=== PATIENT | female | born 1955 | race Caucasian/White ===

== ENCOUNTER → 2017-04-09 08:08 | Outpatient (CLI) | payer BC, SELFPAY ==
--- NOTE | 2017-04-09 08:10 | MM_ITS ---
MM Dig screening mamm BI w/CAD CAD Screening COMPARISON: August 04, 2016 and 10/22/2015 INDICATION: Screening for breast cancer ORDERING PHYSICIAN: Leander Dorsey MD PATIENT AGE: 61 years TECHNIQUE: Standard CC and MLO images were obtained. R2 CAD reviewed. FINDINGS: There is average fibroglandular tissue. Scattered benign-appearing calcifications and benign-appearing areas of asymmetric density are noted bilaterally. Small cluster of calcifications noted in the medial aspect of the left breast. These are probably benign and may been present previously but only mildly more prominent. No malignant appearing mass or malignant appearing microcalcification. IMPRESSION: No convincing evidence of malignancy. Benign findings left breast BI-RADS Category: 3 Benign Finding Short Term Follow-up RECOMMENDED FOLLOW-UP: 6M - 6 MONTH FOLLOW-UP left breast (A letter has been sent to the patient regarding results of the study.)
== END ==
PROVIDERS: Family Provider Family Medicine; PCP Family Medicine; Visit Provider Obstetrics & Gynecology
DX: Z12.31 Encounter for screening mammogram for malignant neoplasm of breast (principal)
CPT/HCPCS: 77066; 77067

== ENCOUNTER → 2017-10-11 12:43 | Outpatient (CLI) | payer BC, SELFPAY ==
--- NOTE | 2017-10-11 12:45 | MM_ITS ---
MM Dig mamm DX unilat LT CAD INDICATION: Follow-up abnormal mammogram ORDERING PHYSICIAN: Leander Dorsey MD PATIENT AGE: 62 years COMPARISON: 04/09/2017 TECHNIQUE: Left mammogram performed along with spot compression mag views FINDINGS: There is average fibroglandular tissue. Scattered areas of asymmetry are present in the central and then the medial aspect of the left breast. These areas appear to compress out as fibroglandular tissue. Small cluster of microcalcifications in the medial aspect of the left breast are once again noted. Number slightly increased compared to the previous exam. Biopsy is therefore recommended IMPRESSION: Slight increase in the number of microcalcifications involving the medial aspect of the left breast. Suggest stereotactic biopsy for further evaluation BI-RADS Category: 4 Suspicious Abnormality-Biopsy Considered RECOMMENDED FOLLOW-UP: BIO - BIOPSY RECOMMENDED (A letter has been sent to the patient regarding results of the study.)
== END ==
PROVIDERS: Family Provider Family Medicine; PCP Family Medicine; Visit Provider Obstetrics & Gynecology
DX: R92.8 Other abnormal and inconclusive findings on diagnostic imaging of breast (principal)
CPT/HCPCS: 77065

== ENCOUNTER → 2017-12-01 08:42 | Outpatient (CLI) | payer BC, SELFPAY ==
--- NOTE | 2017-12-01 08:45 | MM_ITS ---
MM stereotactic loc LT, MM Dig mamm DX unilat LT CAD ORDERING PHYSICIAN: Leander Dorsey MD PATIENT AGE: 62 years Comparison: 10/11/2017 Limited focused H&P: HISTORY: Breast calcifications PROCEDURE: The patient was placed on the stereotactic table and the calcifications within the medial aspect of the left breast was localized in the most appropriate projection. The breast was prepped in the routine manner, with sterile prep and the overlying skin anesthetized. A 3 to 4 mm skin incision was performed and the 9 gauge sorus vacuum-assisted core biopsy needle was advanced to the region of the calcification. Pre- and post fire images were obtained. After adequate positioning relative to the calcifications was ensured, multiple biopsies were obtained in the region of the calcifications specifically. The core biopsies obtained were sent for specimen mammography. After the calcifications were indeed identified on the specimen mammogram, the procedure was terminated. The patient tolerated the procedure well without complications. Specimen was sent for pathologic analysis which should be forthcoming within 3 working days. Routine follow-up phone call to patient is to be performed as well. A tiny titanium nonferromagnetic MicroMark was positioned through the mammotome needle into the biopsy site. Pathology: Benign fibroadenoma with associated calcifications. No evidence of atypical ductal hyperplasia or carcinoma IMPRESSION: 1. Successful stereotactic vacuum-assisted core biopsy of the Left breast calcifications showing benign findings. 2. Successful placement of a titanium metal MicroMark. 3. No noted complications. SPECIMEN RADIOGRAPH: The mammographically evident calcifications from the prior study are currently evident within the Prasanna dish and within the specimens obtained during mammotome procedure. This is considered an adequate specimen and the procedure was terminated. IMPRESSION: Successful removal of described breast calcifications. Left BREAST MAMMOGRAM: Compared to the prior study, the previously noted calcification have been removed. A small MicroMark clip was inserted into the region of the calcifications. There is evidence of soft tissue changes in the region of the biopsy was soft tissue gas and edema. IMPRESSION: 1. Adequate placement of the MicroMark clip postbiopsy. 2. Postbiopsy changes within the left breast. Recommend 6 month follow-up per routine protocol
== END ==
PROVIDERS: Family Provider Family Medicine; PCP Family Medicine; Visit Provider Obstetrics & Gynecology
DX: R92.8 Other abnormal and inconclusive findings on diagnostic imaging of breast (principal)
CPT/HCPCS: 19081; 77065

== ENCOUNTER → 2017-12-13 07:39 | Outpatient (CLI) | payer BC, SELFPAY ==
[2017-12-13 09:04] LABS: Basophils % 0.8 % (0.1-2.0); Eosinophils # 0.3 K/mm3 (0.0-0.4); Eosinophils % 4.5 % (0.1-12.0); Hematocrit 43.2 % (37.0-47.0); Hemoglobin 13.7 g/dL (12.2-16.2); Lymphocytes # 2.4 K/mm3 (0.7-4.5); Lymphocytes % 43.1 K/mm3 (10-50); Mean Corpuscular HGB Conc 31.8 g/dL (31.8-35.4); Mean Corpuscular Hemoglobin 27.5 pg (27.0-31.2); Mean Corpuscular Volume 86.6 fl (81-99); Mean Platelet Volume 6.6 fl (7.4-10.4); Monocytes # 0.3 K/mm3 (0.1-1.0); Monocytes % 5.5 % (1.7-9.3); Neutrophils # 2.5 K/mm3 (1.8-7.8); Neutrophils % 46.1 % (37.0-80.0); Platelet Count 291 K/mm3 (142-424); Red Blood Count 4.99 M/mm3 (4.20-5.40); Red Cell Distribution Width 13.9 % (11.5-17.5); White Blood Count 5.5 K/mm3 (4.8-10.8)
[2017-12-13 09:37] LABS: Alanine Aminotransferase 24 U/L (12-78); Albumin Level 3.8 gm/dL (3.4-5.0); Albumin/Globulin Ratio 1.2 (1.1-1.8); Alkaline Phosphatase 114 U/L (46-116); Anion Gap 10.5 mEq/L (5-15); Aspartate Amino Transferase 14 U/L (15-37); Bilirubin,Total 0.5 mg/dL (0.2-1.0); Blood Urea Nitrogen 16 mg/dL (7-18); Calcium 9.2 mg/dL (8.5-10.1); Carbon Dioxide 31 mmol/L (21.0-32.0); Chloride 106 mmol/L (98-107); Chol/HDL Ratio 2.8 (1-3.5); Cholesterol 139 mg/dL (140-200); Creatinine,Serum 0.94 mg/dL (0.55-1.02); Estimated Glomerular Filt Rate 60 ml/min (>60); GFR (African American) 73 ML/MIN (>60); Globulin 3.3 gm/dl (1.3-3.2); Glucose 89 mg/dL (74-106); HDL Cholesterol 49 mg/dL (29-89); LDL Cholesterol 64 mg/dL (0-130); Potassium 4.5 mmoL/L (3.5-5.1); Sodium 143 mmol/L (136-145); Total Protein,Serum 7.1 gm/dL (6.4-8.2); Triglycerides 130 mg/dL (30-200); VLDL Cholesterol 26 mg/dL (0-40)
== END ==
PROVIDERS: PCP Family Medicine; Visit Provider Family Medicine
DX: Z79.899 Other long term (current) drug therapy (principal); Z13.1 Encounter for screening for diabetes mellitus; Z13.220 Encounter for screening for lipoid disorders
CPT/HCPCS: 36415; 80053; 80061; 85025

== ENCOUNTER → 2018-06-03 12:40 | Outpatient (CLI) | payer BC, SELFPAY ==
--- NOTE | 2018-06-03 12:42 | MM_ITS ---
MM Dig mamm DX unilat LT CAD Ordering Physician: Leander Dorsey MD Patient Age: 63 years Female COMPARISON: March 20172016 HISTORY. Six-month follow-up. Postbiopsy.: Left breast. Patient did before other right mammogram TECHNIQUE: FINDINGS: Moderate density heterogeneous breast pattern again seen. Mammography with slight decrease sensitivity of this heterogeneous character breast pattern. No focal suspicious mass nor concerning dominant mass. No suspicious calcifications. Vascular calcifications bilaterally... Interval biopsy left breast with density related to post biopsy changes Left breast There has been interval percutaneous biopsy at the deep medial left breast. The calcifications targeted were removed with no new or significant findings otherwise evident. Normal nodularity in one view seem to dissipate on another does not persist with this I believe a bilateral follow-up in one year would be adequate. Right breast. No new findings of significant concern. Bilateral follow-up in one year recommended IMPRESSION: ......... Left breast Interval percutaneous biopsy with clip placement;, with no new findings of significant concern otherwise.. Right breast: Stable no new areas of concern Moderately dense heterogeneous breast Routine bilateral mammogram in not over one year recommended BI-RADS Category: 2 Benign Finding(s) RECOMMENDED FOLLOW-UP: 1YR 1 YEAR FOLLOW-UP A letter has been sent to the patient regarding results of the study.) .
== END ==
PROVIDERS: PCP Family Medicine; Visit Provider Obstetrics & Gynecology
DX: R92.8 Other abnormal and inconclusive findings on diagnostic imaging of breast (principal)
CPT/HCPCS: 77066

== ENCOUNTER → 2018-12-14 08:37 | Outpatient (CLI) | payer BC, SELFPAY ==
[2018-12-14 09:11] LABS: Basophils # 0.1 K/mm3 (0-0.2); Basophils % 0.9 % (0.1-2.0); Eosinophils # 0.2 K/mm3 (0.0-0.4); Eosinophils % 3.6 % (0.1-12.0); Hematocrit 43.4 % (37.0-47.0); Hemoglobin 13.7 g/dL (12.2-16.2); Lymphocytes % 35.5 % (10-50); Mean Corpuscular HGB Conc 31.6 g/dL (31.8-35.4); Mean Corpuscular Hemoglobin 27.8 pg (27.0-31.2); Mean Corpuscular Volume 88.1 fl (81-99); Monocytes # 0.3 K/mm3 (0.1-1.0); Monocytes % 5.6 % (1.7-9.3); Neutrophils # 3.1 K/mm3 (1.8-7.8); Neutrophils % 54.4 % (37.0-80.0); Platelet Count 291 K/mm3 (142-424); Red Blood Count 4.93 M/mm3 (4.20-5.40); Red Cell Distribution Width 13.9 % (11.5-17.5); White Blood Count 5.7 K/mm3 (4.8-10.8)
[2018-12-14 09:55] LABS: Alanine Aminotransferase 19 U/L (12-78); Albumin Level 3.7 gm/dL (3.4-5.0); Albumin/Globulin Ratio 1.3 (1.1-1.8); Alkaline Phosphatase 98 U/L (46-116); Anion Gap 9.2 mEq/L (5-15); Aspartate Amino Transferase 13 U/L (15-37); Bilirubin,Total 0.4 mg/dL (0.2-1.0); Blood Urea Nitrogen 16 mg/dL (7-18); Calcium 8.5 mg/dL (8.5-10.1); Carbon Dioxide 29 mmol/L (21.0-32.0); Chloride 107 mmol/L (98-107); Chol/HDL Ratio 2.8 (1-3.5); Cholesterol 126 mg/dL (140-200); Estimated Glomerular Filt Rate 63 ml/min (>60); GFR (African American) 76 ML/MIN (>60); Globulin 2.9 gm/dl (1.3-3.2); Glucose 88 mg/dL (74-106); HDL Cholesterol 45 mg/dL (29-89); LDL Cholesterol 54 mg/dL (0-130); Potassium 4.2 mmoL/L (3.5-5.1); Sodium 141 mmol/L (136-145); Total Protein,Serum 6.6 gm/dL (6.4-8.2); Triglycerides 133 mg/dL (30-200); VLDL Cholesterol 27 mg/dL (0-40)
== END ==
PROVIDERS: Visit Provider Family Medicine
DX: Z13.1 Encounter for screening for diabetes mellitus (principal); Z13.220 Encounter for screening for lipoid disorders; Z79.899 Other long term (current) drug therapy
CPT/HCPCS: 36415; 80053; 80061; 85025

== ENCOUNTER → 2020-03-20 09:06 | Outpatient (CLI) | payer MEDICARE, SELFPAY ==
[2020-03-20 10:35] LABS: Coronavirus 19 IgG Antibody Negative (Negative); Coronavirus 19 IgM Antibody Negative (Negative)
== END ==
PROVIDERS: Visit Provider Internal Medicine Gastroenterology
DX: Z01.812 Encounter for preprocedural laboratory examination (principal); Z20.822 Contact with and (suspected) exposure to COVID-19; Z12.11 Encounter for screening for malignant neoplasm of colon
CPT/HCPCS: 36415; 86328

== ENCOUNTER 2020-03-22 08:08 | Day surgery (SDC) | payer MEDICARE, OTHER, SELFPAY ==
[2020-03-18 09:05] VITALS: BMI 30.9
[2020-03-22] VITALS (7 sets, daily range): BP systolic 107–149; BP diastolic 70–86; PULSE 62–99; RESP 18; TEMP 36.2–36.6; O2SAT 94–98
--- NOTE | 2020-03-22 09:28 | P.PN_ITS ---
[facility] Anesthesia Checklist - Patient Identification Patient Identification: Arm Band - Structural Data Admitted From: Home Planned Operative Procedure/s: colonoscopy Consent for Planned Operative Procedure(s) Verified: Yes Verified Documents: Surgical Consent, History and Physical - NPO Status Verified Time NPO: 00:00 - Additional verifications Anesthesia Reactions: No - Airway Assessment C-Spine Mobility Assessed: Yes (mp2) TMJ Mobility Assessed: Yes Dentition: Good Dentition - Neurological Assessment Level of Consciousness: Awake, Alert - Anesthesia Plan Anesthesia Risk discussed: Yes Anesthesia Plan: Verified ASA Class: II Anesthesia Type: MAC [facility] History I have reviewed the patient's past medical history: Yes Medical History: Denies:: Cancer, Diabetes Mellitus Type 1, Diabetes Mellitus Type 2, Internal Pacemaker, MRSA, Seizures *Have you ever received a pneumonia vaccine?: No *Have you received a flu vaccine this season?: No Other Medical History: Reports: Other Anesthesia experience/problems:: nac Other Surgeries: Yes: Other. No: Pacemaker Amputation: No Fractures: No - *Social History Last grade of school completed: High school graduate Smoking Status: Never smoker Alcohol Intake: never Alcohol Intake Frequency:: other Substance Use Type: denies use *Occupational Status:: retired Housing: house Household Members: spouse *Travel in the last 8 weeks: None Family Hx:: Heart Attack
--- NOTE | 2020-03-22 09:45 | P.PCN_ITS ---
[facility] Procedure Note Procedure Note:: Colonoscopy Procedure Report: Colonoscopy with cold snare polypectomy Endoscopist: Roe Estes II, MD Referring physician: Jesus Barnes MD Date of Procedure: March 22, 2020 Equipment: Olympus 180 variable stiffness pediatric colonoscope Sedation: MAC sedation Indication: Mrs. Escobar is a 64-year-old female who is here for diagnostic colonoscopy secondary to a positive Cologuard. Her last colonoscopy was in 2005 (Dr. Scott Orozco). The patient does get some hemorrhoidal bleeding. This is minor. She does state that her paternal aunt had colon cancer. She reports no abdominal pain, weight loss or change in her bowel habits. Her recent lab work showed hemoglobin 13.4 and hematocrit 41.7. She had normal creatinine and normal liver chemistries. Procedure: Prior to the procedure, a history and physical exam was performed, and patient's medications and allergies were reviewed. The risks, benefits and alternatives of the sedation and procedure were discussed with the patient. All questions were answered and informed consent was obtained. The patient was brought to the procedure room. Patient identification and proposed procedure were verified by the physician and the nurse. The patient was placed in a left lateral decubitus position and the scope was passed under direct vision. Throughout the procedure, the patient's blood pressure, pulse, and oxygen saturations were monitored continuously. The colonoscopy was accomplished without difficulty. The patient tolerated the procedure well. Findings: On digital rectal examination there was normal rectal tone. There were no external hemorrhoids. The colonoscope was introduced through the anal canal to the rectum and advanced to the cecum. The ileocecal valve and appendiceal orifice were identified. The scope was advanced a short distance into the ileum which appeared grossly normal. The scope was then withdrawn into the colon. There were 4 colon polyps (cecum x2 (5 and 10 mm) and descending x2 (3 and 4 mm)) which were all removed via cold snare polypectomy. There were scattered diverticuli throughout the descending and sigmoid colon (LEFT colon). The rectum itself was normal. Upon retroflexion within the rectum there were grade 2 internal hemorrhoids. The preparation was excellent throughout with [place] Preparation Score of 9. The cecal time was 14 minutes. Impression: 1. Colonic polyps x4 2. Left-sided diverticulosis 3. Grade 2 internal hemorrhoids Plan: I will follow up the polyp pathology and recommend repeat colonoscopy again in 3-5 years based upon the polyp histology. I would encourage bulk fiber supplementation on a long-term daily maintenance basis.
== END 2020-03-22 10:45 | disposition home or self-care (01) ==
LOC: OUTP 08:11
PROVIDERS: PCP Family Medicine; Visit Provider Internal Medicine Gastroenterology
PROC: 0DJD8ZZ Inspection of Lower Intestinal Tract, Via Natural or Artificial Opening Endoscopic (ICD-10-PCS; CPT 45378; principal; 2020-03-22 09:00)
DX: K63.5 Polyp of colon (principal); K57.30 Diverticulosis of large intestine without perforation or abscess without bleeding; K64.1 Second degree hemorrhoids; Z82.3 Family history of stroke; Z80.3 Family history of malignant neoplasm of breast; Z82.49 Family history of ischemic heart disease and other diseases of the circulatory system; Z83.3 Family history of diabetes mellitus; Z88.1 Allergy status to other antibiotic agents; Z79.899 Other long term (current) drug therapy
CPT/HCPCS: 45385; 88305

== ENCOUNTER → 2020-12-24 07:43 | Outpatient (CLI) | payer MEDICARE, OTHER, SELFPAY ==
--- NOTE | 2020-12-24 07:47 | MM_ITS ---
PROCEDURE: MM DIG SCREENING MAMM BI W/CAD Digital Breast Tomosynthesis Included CLINICAL INDICATION: SCREENING There is a history of breast cancer in the patient's sister diagnosed at age 36 and in the patient's paternal aunt. There has been a previous biopsy left breast for benign disease. COMPARISON: Digital mammograms with CAD 06/03/2018 TECHNIQUE: Standard CC and MLO images and 3D Tomosynthesis was obtained. R2 CAD reviewed. FINDINGS: Moderate diffuse fibroglandular densities are seen throughout both breasts and the findings are bilateral and symmetrical. There is a biopsy clip left breast and there is a coarse benign-appearing macro calcification left breast. There is faint arterial calcification in each breast highlighted by CAD. There is no suspicious lesion and no suspicious microcalcifications. IMPRESSION: Moderate diffuse breast density with no suspicious lesions seen BI-RAD Category: 2 Benign Finding(s) FOLLOW-UP: 1YR 1 Year Follow-up (A letter has been sent to the patient regarding results of the study.) Dictated by: Dr. Ramez Dacosta MD 12/27/2020 11:41 Dr. Ramez Dacosta MD in [place] 12/27/2020 11:41
--- NOTE | 2020-12-24 08:25 | XR_ITS ---
PROCEDURE: XR DEXA AXIAL SKELETON CLINICAL HISTORY: POST MENOPAUSAL COMPARISON: CR,DX BONE3 BONE DENSITOMETRY(HIP:LT SPINE from 04/06/2016 FINDINGS: The right hip BMD is 0.784 with a T-score of -0.6. The left hip BMD is 0.776 with a T-score of -0.7. The lumbar spine BMD is 1.374 with a T-score of 3.0. Previous the lowest density was in the left femoral neck with T-score of -0 point IMPRESSION: This patient is considered normal according to the World Health Organization criteria. Fracture risk is low. Based on these results a follow-up exam is recommended in 2 year. Dictated by: Adams Hatch MD 12/24/2020 15:06 Adams Hatch MD in [place] 12/24/2020 15:06
== END ==
PROVIDERS: PCP Family Medicine; Visit Provider Family Medicine
DX: Z12.31 Encounter for screening mammogram for malignant neoplasm of breast (principal); Z13.820 Encounter for screening for osteoporosis; Z78.0 Asymptomatic menopausal state
CPT/HCPCS: 77063; 77067; 77080

== ENCOUNTER → 2021-12-26 10:02 | Outpatient (CLI) | payer MEDICARE, OTHER, SELFPAY ==
--- NOTE | 2021-12-26 10:06 | MM_ITS ---
PROCEDURE INFORMATION: Exam: MG Bilateral Screening 3D Mammography Exam date and time: 12/26/2021 10:05 AM Age: 66 years old Clinical indication: Screening examination. Her sister and a paternal aunt had breast cancer. History of benign left stereotactic biopsy. TECHNIQUE: Imaging protocol: Bilateral Screening tomosynthesis and 2D mammography including computer-aided detection (CAD) when performed. COMPARISON: 1. MG MM DIG SCREENING MAMM BI W/CAD 12/24/2020 8:02 AM 2. MG DXBI MM Dig mamm BI DX w/CAD 06/03/2018 1:09 PM 3. MG STLT MM stereotactic loc LT 12/01/2017 10:08 AM 4. MG DXLT MM Dig mamm DX unilat LT CAD 10/11/2017 1:08 PM FINDINGS: MAMMOGRAPHY: Breast composition: There are scattered areas of fibroglandular density. Mass: None. Architectural distortion: None. Calcifications: No suspicious calcifications. Asymmetric density: None. Skin thickening: None. Axillary adenopathy: None. Other: Left biopsy clip. IMPRESSION: No mammographic evidence of malignancy. Annual screening is recommended unless otherwise clinically indicated. ASSESSMENT: BI-RADS Category 2: Benign
== END ==
PROVIDERS: PCP Family Medicine; Visit Provider Family Medicine
DX: Z12.31 Encounter for screening mammogram for malignant neoplasm of breast (principal)
CPT/HCPCS: 77063; 77067

== ENCOUNTER → 2022-08-07 10:09 | Outpatient (CLI) | payer MEDICARE, OTHER, SELFPAY ==
--- NOTE | 2022-08-07 10:15 | XR_ITS ---
FINAL REPORT TECHNIQUE: Chest PA & Lateral CLINICAL HISTORY: Nonspecific cough COMPARISON: None FINDINGS: 2 views of the chest were performed. The heart size is normal. The mediastinum is within normal limits. There is no acute cardiopulmonary process. There are no pleural effusions. There is no pneumothorax. The bony thorax appears intact. IMPRESSION: No acute cardiopulmonary process. Reviewed, Interpreted and Dictated by Nino Franco MD Transcribed by Gloria Mauricio Authenticated and [facility]
== END ==
PROVIDERS: PCP Family Medicine; Visit Provider Family Medicine
DX: R05.9 Cough, unspecified (principal)
CPT/HCPCS: 71046

== ENCOUNTER → 2022-08-17 07:18 | Outpatient (CLI) | payer SELFPAY ==
--- NOTE | 2022-08-17 07:30 | CT_ITS ---
FINAL REPORT TECHNIQUE: Thin-section axial images were obtained through the heart and coronary arteries per CT coronary calcium score protocol. The study was performed with techniques to keep radiation doses as low as reasonably achievable (ALARA). Individual dose reduction technique using automated exposure control adjustment of mA and/or kv according to the patient's size were employed. CLINICAL HISTORY: SCREENING, hx of htn, COMPARISON: None FINDINGS: On the axial images, there is calcification within the circumflex coronary artery. This gives a coronary artery calcium score of 17 based on the Agatston scale. The coronary artery calcium score places the patient within the 45th percentile based on age and gender. The heart size is normal. There is no pleural pericardial effusion. Limited evaluation of the lungs reveals no suspicious nodule. IMPRESSION: Coronary artery score of 17 placing patient within the 45th percentile. Reviewed, Interpreted and Dictated by Ministerio Petersen III, MD Transcribed by Gloria Mauricio Authenticated and [facility]
== END ==
PROVIDERS: PCP Family Medicine; Visit Provider Family Medicine
DX: Z13.6 Encounter for screening for cardiovascular disorders (principal)
CPT/HCPCS: 75571

== ENCOUNTER 2023-10-21 07:48 | Day surgery (SDC) | payer MEDICARE, OTHER, SELFPAY ==
[2023-10-19 13:16] VITALS: BMI 29.9
[2023-10-21 08:09] VITALS: BP 139/85; PULSE 82; RESP 16; TEMP 36.1; O2SAT 98
[2023-10-21 08:56] VITALS: O2SAT 98
--- NOTE | 2023-10-21 08:56 | P.PNANES_ITS ---
[facility] Disclaimer: The information contained in this section may have been updated after the patient was seen, as this information can be updated by other users. Medical History Cystitis Hypertension Surgical History (Updated 10/21/23 @ 08:05 by Krystyna Bowers) History of facial surgery Social History Smoking Status: Never smoker alcohol intake: never substance use type: denies use current occupational status: retired Travel in the last 8 weeks: None household members: spouse housing: house caffeine: No [facility] Anesthesia Checklist Patient Identification Patient Identification: Arm Band Structural Data Admitted From: Home Planned Operative Procedure/s: Colonoscopy Consent for Planned Operative Procedure(s) Verified: Yes Verified Documents: Surgical Consent and History and Physical NPO Status Verified Time NPO: 00:00 Additional verifications Anesthesia Reactions: No Airway Assessment Mallampati Score:: Class II C-Spine Mobility Assessed: Yes TMJ Mobility Assessed: Yes Dentition: Good Dentition Neurological Assessment Level of Consciousness: Awake, Alert and Appropriate Anesthesia Plan Anesthesia Risk discussed: Yes Anesthesia Plan: Verified ASA Class: II Anesthesia Type: MAC
--- NOTE | 2023-10-21 09:10 | HMH.SCOPE ---
Procedure: Date: 10/21/23 Patient Date of :: 1955 Procedure Performed:: Screening colonoscopy Indications:: History of polyps Performing Provider:: Alondra Solano MD Referring Provider:: Jesus Barnes MD Sedation:: Propofol Procedure:: After placing the patient in the left lateral decubitus position, the colonoscopy was gently inserted into the rectum and under direct visualization advanced to the cecum which was identified by transillumination in the right lower quadrant, identification of the ileocecal valve, appendiceal orifice, and cecal strap. Color, texture, mucosa, and anatomy of the colon were carefully examined with the scope. Findings:: Anal canal: normal Rectum: normal Sigmoid colon: normal without polyps or inflammatory changes, scattered diverticulosis Descending colon: normal without polyps or inflammatory changes Splenic flexure: normal Transverse colon: normal without polyps or inflammatory changes Hepatic flexure: normal Ascending colon: normal without polyps or inflammatory changes Cecum: normal Terminal ileum: not visualized Impression: Scattered sigmoid diverticulosis otherwise normal colonoscopy Recommendations:: Follow up examination in about FIVE years or so, sooner if clinically indicated in view of history of polyps. Complications:: None Estimated blood obtained (mL): 0 Colonoscopy Component Colonoscopy Component Was a colonoscopy performed during today's procedure?: Yes Recommended follow up colonoscopy of at least 10 years?: No If no, follow up colonoscopy recommended in ___ years?: Five Reason for not recommending >/= 10 yr follow-up interval?: History of polyps
[2023-10-21 09:11] VITALS: BP 123/67; PULSE 69; RESP 14; O2SAT 96
[2023-10-21 09:21] VITALS: BP 108/53; PULSE 71; RESP 16; O2SAT 97
[2023-10-21 09:31] VITALS: BP 113/70; PULSE 64; RESP 16; O2SAT 96
[2023-10-21 09:41] VITALS: BP 117/64; PULSE 68; RESP 16; O2SAT 99
== END 2023-10-21 09:53 | disposition home or self-care (01) ==
PROVIDERS: PCP Family Medicine; Visit Provider Internal Medicine Gastroenterology
PROC: 0DJD8ZZ Inspection of Lower Intestinal Tract, Via Natural or Artificial Opening Endoscopic (ICD-10-PCS; CPT 45378; principal; 2023-10-21 09:00)
DX: Z12.11 Encounter for screening for malignant neoplasm of colon (principal); Z86.010 Personal history of colon polyps; K57.30 Diverticulosis of large intestine without perforation or abscess without bleeding
CPT/HCPCS: G0121; J7120

== ENCOUNTER 2023-10-26 08:58 | Outpatient (POV) | payer MEDICARE, OTHER, SELFPAY | END 2023-10-26 23:59 | disposition home or self-care (01) | LOC: SC 08:59 | PROVIDERS: PCP Family Medicine; Visit Provider Dermatology | DX: Z00.00 Encounter for general adult medical examination without abnormal findings (principal) ==

== ENCOUNTER 2023-12-13 09:14 | Outpatient (CLI) | payer MEDICARE, OTHER, SELFPAY ==
--- NOTE | 2023-12-13 09:17 | XR_ITS ---
FINAL REPORT CLINICAL HISTORY: SCREENING FINDINGS: Using L1-4, the bone mineral density of the spine is 1.419 g/cm2, corresponding to T-score of 3.4. Using the left hip, the bone mineral density of the femoral neck is 0.815 g/cm2, corresponding to a T-score of -0.3. Using the right hip, the bone mineral density of the femoral neck is 0.726 g/cm2, corresponding to a T-score of -1.1. FRAX 10 year fracture risk is 8.6% for a hip fracture and 0.9% for a major osteoporotic fracture. IMPRESSION: Normal bone mineral density in the lumbar spine and left hip. Osteopenic bone mineral density of the right hip. NOTE: T-score: Standard deviation compared with peak bone mass of young adult mean. *Following the recommendations of the International Society of Bone densitometry, classification of hip BMD is based on the lower of two T-scores; total hip or femoral neck. Reviewed, Interpreted and Dictated by Gary Sotomayor MD Transcribed by Chiqui Daniel Authenticated and [facility]
== END 2023-12-13 23:59 | disposition home or self-care (01) ==
LOC: RAD 09:15
PROVIDERS: PCP Family Medicine; Visit Provider Family Medicine
DX: M81.0 Age-related osteoporosis without current pathological fracture (principal)
CPT/HCPCS: 77080

== ENCOUNTER 2023-12-20 14:32 | Outpatient (CLI) | payer MEDICARE, OTHER, SELFPAY ==
--- NOTE | 2023-12-20 14:36 | XR_ITS ---
PROCEDURE INFORMATION: Exam: XR Right Knee Exam date and time: 12/20/2023 2:47 PM Age: 68 years old Clinical indication: Pain; Knee; Right TECHNIQUE: Imaging protocol: Radiologic exam of the right knee. Views: 3 views. COMPARISON: No relevant prior studies available. FINDINGS: Bones/joints: Advanced tricompartmental degenerative changes most pronounced in the medial and patellofemoral compartments with associated severe joint space narrowing and prominent spurring and lateral listhesis of the tibia. Osteocartilaginous loose bodies. No acute abnormality. Soft tissues: Normal. IMPRESSION: Advanced degenerative changes. Loose bodies.
== END 2023-12-20 23:59 | disposition home or self-care (01) ==
LOC: RAD 14:33
PROVIDERS: PCP Family Medicine; Visit Provider Family Medicine
DX: M25.561 Pain in right knee (principal)
CPT/HCPCS: 73562

== ENCOUNTER 2024-03-14 11:48 | Outpatient (CLI) | payer MEDICARE, OTHER, SELFPAY ==
--- NOTE | 2024-03-14 11:52 | XR_ITS ---
FINAL REPORT CLINICAL HISTORY: left knee pain COMPARISON: None FINDINGS: LEFT KNEE 3 views of the left knee were obtained. There is no acute fracture or dislocation. There are moderate hypertrophic changes of the lateral compartment joint space. Osteophyte formation is noted at the lateral joint margin. There are small osteophytes along the undersurface of the patella. A small joint effusion is noted. Soft tissues are unremarkable. IMPRESSION: Moderately advanced changes of osteoarthritis, particularly in the lateral compartment and patellofemoral joint. Reviewed, Interpreted and Dictated by Nino Franco MD Transcribed by Gloria Mauricio Authenticated and [facility]
== END 2024-03-14 23:59 | disposition home or self-care (01) ==
LOC: RAD 11:49
PROVIDERS: PCP Family Medicine; Visit Provider Physician Assistant
DX: M25.562 Pain in left knee (principal)
CPT/HCPCS: 73562

== ENCOUNTER 2024-06-26 07:19 | Outpatient (CLI) | payer MEDICARE, OTHER, SELFPAY ==
--- NOTE | 2024-06-26 07:30 | CT_ITS ---
FINAL REPORT TECHNIQUE: Thin section axial CT images with coronal and sagittal reformats were performed of the right knee. This study was performed with techniques to keep radiation doses as low as reasonably achievable (ALARA). Individualized dose reduction techniques using automated exposure control or adjustment of mA and/or kV according to the patient''s size were employed. CLINICAL HISTORY: .total knee planning FINDINGS: There are no fractures. There are no masses or fluid collections. There are no soft tissue abnormalities. There is advanced medial compartment joint space narrowing. Prominent osteophytes are seen in the medial joint. There is subchondral sclerosis and degenerative cyst formation. Moderate hypertrophic changes are seen at the undersurface of the patella. There appear to be small intra-articular loose bodies in the posterior joint space measuring up to 1 cm in greatest dimension. IMPRESSION: Advanced medial compartment joint space narrowing with subchondral cysts and degenerative cyst formation. Reviewed, Interpreted and Dictated by Nino Franco MD Transcribed by Kerry Alvarado Authenticated and [facility]
== END 2024-06-26 23:59 | disposition home or self-care (01) ==
LOC: RAD 07:20
PROVIDERS: PCP Family Medicine; Visit Provider Physician Assistant
DX: M17.11 Unilateral primary osteoarthritis, right knee (principal); M85.48 Solitary bone cyst, other site
CPT/HCPCS: 73700

== ENCOUNTER 2024-07-13 09:00 | Outpatient (RCR) | payer MEDICARE, OTHER, SELFPAY | END 2024-07-13 23:59 | disposition home or self-care (01) | LOC: PT 09:00 | PROVIDERS: PCP Family Medicine; Visit Provider Physician Assistant | DX: M17.11 Unilateral primary osteoarthritis, right knee (principal) | CPT/HCPCS: 97110; 97163; 97535 ==

== ENCOUNTER 2024-08-10 09:00 | Outpatient (RCR) | payer MEDICARE, OTHER, SELFPAY ==
--- NOTE | 2024-07-21 11:19 | HMH.RHREAS ---
Rehab Reassessment Rehab OP Re-assessment Start: 07/18/24 07:58 Freq: Status: Active Protocol: Document 07/20/24 10:23 JIGAR (Rec: 07/20/24 11:13 JIGAR [id number]) E-signed By Valeria Mayer PT Lower Extremity Functional Index Activities Today, do you or would you have any difficulty at all with: a.Any of your usual Moderate difficulty work, housework or school activities b. Your usual Moderate difficulty hobbies, recreational or sporting activities c. Getting into or Quite a bit of difficulty out of the bath d. Walking between Quite a bit of difficulty rooms e. Putting on your Quite a bit of difficulty shoes or socks f. Squatting Extreme difficulty or unable to perform activity g. Lifting an object Moderate difficulty , like a bag of groceries from the floor h. Performing light Moderate difficulty activities around your home i. Performing heavy A little bit of difficulty activities around your home j. Getting into or Quite a bit of difficulty out of a car k. Walking 2 blocks Extreme difficulty or unable to perform activity l. Walking a mile Extreme difficulty or unable to perform activity m. Going up or down Extreme difficulty or unable to perform activity 10 stairs (about 1 flight of stairs) n. Standing for 1 Quite a bit of difficulty hour o. Sitting for 1 No difficulty hour p. Running on even Extreme difficulty or unable to perform activity ground q. Running on uneven Extreme difficulty or unable to perform activity ground r. Making sharp Extreme difficulty or unable to perform activity turns while running fast s. Hopping Quite a bit of difficulty t. Rolling over in No difficulty bed LEFI Score Lower Extremity 25 Functional Index Score Rehab Re-assessment Subjective Subjective Pt reports her surgery isn't scheduled yet. Pt has an appointment on the with ortho, Dr. Araujo. Pt reports she feels 0% improved 48 hour pain average: 10/25 Objective Objective Notes RLE strength: Hip FLEX = 4/5 Hip ABD = 5/5 Hip ADD = 5/5 Knee FLEX = 4+/5 Knee EXT = 4+/5 R knee AROM: 8-110 degrees R knee PROM: 6-115 degrees Assessment Progress Assessment Progressing as Expected Assessment Notes This is a reassessment for Idania Escobar who presents to PT for rehab for R TKA. Since IE, pt has been seen for 7 visits that have consisted of education and therapeutic exercises focusing on knee ROM and strength . Pt with good attendance to scheduled PT visits and reports adherence to HEP. Since IE, pt with improvements in strength and ROM. Pt still presents with impaired knee extension ROM. Pt would continue to benefit from skilled outpatient physical therapy to address remaining deficits and achieve LTGs for knee surgery. Patient goals met ST) Improve knee AROM to 5-110 degrees to improve functional ROM: Partially Met (flexion met) 2) Improve RLE strength by 1/5 grade globally: Met 3) Improve to score of 27 points to improve LE functioning: Not Met 4) At most 4/10 with PT exercises: Not Met 5) Verbalize IND with HEP: Met LTG: In progress Plan Plan Continue POC Frequency of Therapy 2-3 times Duration of therapy 4 weeks, until surgery Time and Billing Re-Eval Time 10 Re-Eval Billing 0 Units Charge for PT No reassessment? PHYSICIAN CERTIFICATION: I certify the specified therapy services for Idania Escobar are required, authorized, and reviewed every 30 days.
== END 2024-08-10 23:59 | disposition home or self-care (01) ==
LOC: PT 09:00
PROVIDERS: PCP Family Medicine; Visit Provider Physician Assistant
DX: M17.11 Unilateral primary osteoarthritis, right knee (principal)
CPT/HCPCS: 97110

== ENCOUNTER 2024-08-23 12:20 | Outpatient (CLI) | payer MEDICARE, OTHER, SELFPAY ==
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
--- OUTSIDE RECORDS SUMMARY | 2024-08-23 12:23 | XMS_ITS | Clinical Summary ---
Author Organization [facility] Address [address] [place] [address] Care Team Providers Care Sr. Merchandise Planner Name Role Phone Zoltan Dial MD Primary Care Provider [phone] Family History Medical History Relation Name Comments Cardiac disorder Father Relation Name Status Comments Father Social History Tobacco Use Types Packs/Day Years Used Date Smoking Tobacco: Never Comments Unknown Sex and Gender Information Value Date Recorded Sex Assigned at Not on file Legal Sex Female 8:57 PM EDT Gender Identity Not on file Sexual Orientation Not on file Last Filed Vital Signs Vital Sign Reading Time Taken Comments Blood Pressure - - Pulse - - Temperature - - Respiratory Rate - - Oxygen Saturation - - Inhaled Oxygen Concentration - - Weight 85.3 kg (188 lb 0.1 oz) 09/01/2013 9:12 A M EDT Height 165.1 cm (5' 5 ) 09/01/2013 9:12 AM EDT Body Mass Index 31.29 09/01/2013 9:12 AM EDT Plan of Treatment Not on file Care Teams Sr. Merchandise Planner Relationship Specialty Start Date End Date Zoltan Dial MD [address] [place] [address] [place] [address] PCP - General 06/28/20
--- NOTE | 2024-08-23 12:46 | ECG_ITS ---
APPROVED REPORT Exam: Resting ECG HR:73 bpm ECG Measurements Heart Rate 73 AXES RI 191 P 67 QRSd 88 QRS 61 QT 397 T 58 QTc 422 Conclusion SINUS RHYTHM POSSIBLE LEFT ATRIAL ENLARGEMENT [-0.1mV P-WAVE IN V1/V2] POSSIBLE ANTERIOR MYOCARDIAL INFARCTION , PROBABLY OLD [30 ms Q WAVE IN V3/V4, OR R < 0.2 mV IN V4] BORDERLINE ECG UNCONFIRMED REPORT Electronically signed by : Zoltan Lawton MD 08/25/2024 07:18:21
--- NOTE | 2024-08-23 12:52 | XR_ITS ---
FINAL REPORT TECHNIQUE: Chest PA & Lateral CLINICAL HISTORY: cough COMPARISON: 08/07/2022 FINDINGS: 2 views of the chest were performed. The heart size is normal. The mediastinum is within normal limits. There is no acute cardiopulmonary process. There are no pleural effusions. There is no pneumothorax. The bony thorax appears intact. IMPRESSION: No acute cardiopulmonary process. Reviewed, Interpreted and Dictated by Nino Franco MD Transcribed by Lainey Holt Authenticated and [facility]
[2024-08-23 13:01] LABS: Hematocrit 42.5 % (37.0-47.0); Hemoglobin 13.8 g/dL (12.2-16.2); Immature Granulocytes % 0.1 %; Mean Corpuscular HGB Conc 32.5 g/dL (31.8-35.4); Mean Corpuscular Hemoglobin 27.8 pg (27.0-31.2); Mean Corpuscular Volume 85.5 fl (81-99); Nucleated Red Blood Cells % 0 %; Platelet Count 291 K/mm3 (142-424); Red Blood Count 4.97 M/mm3 (4.20-5.40); Red Cell Distribution Width-SD 44.7 fL; White Blood Count 7.3 K/mm3 (4.8-10.8)
[2024-08-23 13:10] LABS: Anion Gap 14.0 mEq/L (5-15); Blood Urea Nitrogen 16 mg/dl (7-17); Calcium 9.2 mg/dl (8.4-10.2); Carbon Dioxide 28 mmol/L (22.0-30.0); Chloride 100 mmol/L (98-107); Creatinine,Serum 0.90 mg/dl (0.52-1.04); Estimated Glomerular Filt Rate 62 ml/min (>60); GFR (African American) 75 ML/MIN (>60); Glucose 92 mg/dl (74-100); Potassium 4.0 mmoL/L (3.5-5.1); Sodium 138 mmol/L (136-145)
== END 2024-08-23 23:59 | disposition home or self-care (01) ==
LOC: PREOP 12:21
PROVIDERS: PCP Family Medicine; Visit Provider Orthopaedic Surgery
DX: Z01.810 Encounter for preprocedural cardiovascular examination (principal); Z01.811 Encounter for preprocedural respiratory examination; Z01.812 Encounter for preprocedural laboratory examination; R94.31 Abnormal electrocardiogram [ECG] [EKG]; I10 Essential (primary) hypertension; R05.9 Cough, unspecified
CPT/HCPCS: 71046; 80048; 85025; 93005

== ENCOUNTER 2024-08-23 14:00 | Outpatient (RCR) | payer MEDICARE, OTHER, SELFPAY ==
--- NOTE | 2024-08-23 14:55 | HMH.RHREAS ---
Rehab Reassessment Rehab OP Re-assessment Start: 08/15/24 08:48 Freq: Status: Active Protocol: Document 08/23/24 14:22 JIGAR (Rec: 08/23/24 14:49 JIGAR [id number]) E-signed By Valeria Mayer PT Lower Extremity Functional Index Activities Today, do you or would you have any difficulty at all with: a.Any of your usual Quite a bit of difficulty work, housework or school activities b. Your usual Quite a bit of difficulty hobbies, recreational or sporting activities c. Getting into or Quite a bit of difficulty out of the bath d. Walking between No difficulty rooms e. Putting on your Quite a bit of difficulty shoes or socks f. Squatting Extreme difficulty or unable to perform activity g. Lifting an object Quite a bit of difficulty , like a bag of groceries from the floor h. Performing light Quite a bit of difficulty activities around your home i. Performing heavy Quite a bit of difficulty activities around your home j. Getting into or Quite a bit of difficulty out of a car k. Walking 2 blocks Quite a bit of difficulty l. Walking a mile Extreme difficulty or unable to perform activity m. Going up or down Extreme difficulty or unable to perform activity 10 stairs (about 1 flight of stairs) n. Standing for 1 Extreme difficulty or unable to perform activity hour o. Sitting for 1 Extreme difficulty or unable to perform activity hour p. Running on even Quite a bit of difficulty ground q. Running on uneven Extreme difficulty or unable to perform activity ground r. Making sharp Extreme difficulty or unable to perform activity turns while running fast s. Hopping Extreme difficulty or unable to perform activity t. Rolling over in Quite a bit of difficulty bed LEFI Score Lower Extremity 15 Functional Index Score Rehab Re-assessment Subjective Subjective Pt is having a TKA next week. Pt has her OP PT post-TKA evaluation scheduled for 08/31 . Objective Objective Notes RLE strength: Hip FLEX = 4/5 Hip ABD = 5/5 Hip ADD = 5/5 Knee FLEX = 4+/5 Knee EXT = 4+/5 R knee AROM: 6-110 degrees R knee PROM: 5-115 degrees Assessment Progress Assessment Slower Than Expected Assessment Notes This is a RA for Idania Escobar who has been participating in PT to prepare for a TKA which she has scheduled for 08/29. Pt has made some progress in her ROM and strength but has still had the same pain levels . Pt with good attendance to scheduled PT visits and reports adherence to HEP. Pt still presents with slightly impaired knee extension ROM. D/c d/t upcoming TKA. Patient goals met ST) Improve knee AROM to 5-110 degrees to improve functional ROM: Partially Met (flexion met) 2) Improve RLE strength by 1/5 grade globally: Met 3) Improve to score of 27 points to improve LE functioning: Not Met 4) At most 4/10 with PT exercises: Not Met 5) Verbalize IND with HEP: Met Plan Plan d/c pt Time and Billing Re-Eval Time 10 Re-Eval Billing 0 Units Charge for PT No reassessment? PHYSICIAN CERTIFICATION: I certify the specified therapy services for Idania Escobar are required, authorized, and reviewed every 30 days.
== END 2024-08-23 23:59 | disposition home or self-care (01) ==
LOC: PT 14:00
PROVIDERS: PCP Family Medicine; Visit Provider Physician Assistant
DX: M17.11 Unilateral primary osteoarthritis, right knee (principal)
CPT/HCPCS: 97110

== ENCOUNTER 2024-08-29 06:16 | Observation (INO) | payer MEDICARE, OTHER, SELFPAY ==
[2024-08-23 13:45] VITALS: BMI 30.7
[2024-08-29] VITALS (18 sets, daily range): BP systolic 119–166; BP diastolic 54–96; PULSE 63–91; RESP 14–21; TEMP 36.1–37.3; O2SAT 90–98
[2024-08-29] MEDS: LACTATED RINGERS 1000ML 1,000 ML 100 ML IV (06:23)
--- NOTE | 2024-08-29 07:11 | P.PNANES_ITS ---
[facility] Disclaimer: The information contained in this section may have been updated after the patient was seen, as this information can be updated by other users. Medical History Cystitis Hypertension Surgical History (Updated 08/23/24 @ 12:30 by Pérez Lazar RN) History of surgery History of surgery on arm History of facial surgery Family History Other Family history of heart disease Social History Smoking Status: Never smoker alcohol intake: never substance use type: denies use current occupational status: retired Travel in the last 8 weeks?: None household members: spouse housing: house caffeine: No Have you lived/traveled outside US in past 30 days?: No Contact w/someone who lives/traveled outside US past 30 days?: No Exposure to someone with infectious disease in past 14 days?: No Do you have a fever (greater than 100.4 F or 38 C)?: No Have you tested positive for COVID-19?: No Exposed to someone with COVID-19 in past 14 days?: No Do you have a sore throat?: No Do you have a cough?: No Do you have any weakness?: No Do you have any diarrhea?: No Are you experiencing any unusual bleeding?: No Do you have any muscle aches/pain?: No Do you have any abdominal pain?: No Are you experiencing loss of taste or smell?: No [facility] Anesthesia Checklist Patient Identification Patient Identification: Arm Band and Verbal (Name & ) Structural Data Admitted From: Home Planned Operative Procedure/s: Right Total knee arthroplasty Consent for Planned Operative Procedure(s) Verified: Yes Verified Documents: Surgical Consent NPO Status Verified Time NPO: 00:00 Chart Verification Results Verified: ECG Additional verifications Anesthesia Reactions: No Hx Blood Transfusions: No Blood Transfusion Reaction: No Airway Assessment Mallampati Score:: Class II C-Spine Mobility Assessed: Yes TMJ Mobility Assessed: Yes Dentition: Good Dentition Neurological Assessment Level of Consciousness: Awake, Alert and Appropriate Hx Seizures: No Numbness or tingling in extremities: No Anesthesia Plan Anesthesia Risk discussed: Yes Anesthesia Plan: Verified ASA Class: II Anesthesia Type: Spinal
--- NOTE | 2024-08-29 07:39 | HMH.PHAINT1 ---
Pharmacy Intervention Comments: MEDICATION RECONCILIATION COMPLETED ON PATIENT USING EXTERNAL FILL HISTORY FROM PHARMACY. -TENZIN BROWN, FAITHD
--- NOTE | 2024-08-29 11:06 | SUR.PHASEI ---
patient received nerve block by Yao Whitley CRNA and Marcell Oh CRNA at 1100 in PACU.
--- NOTE | 2024-08-29 11:10 | P.PNANES_ITS ---
[facility] Anesthesia Record Part I Anesthesia Record I Intake, IV Amount: 1,300 Hydration: Adequate Estimated blood loss (mL): 0 Urine output (mL): 250 Blood Products used (#): none Blood Pressure: 142/59 SaO2: 92 Pulse Rate: 71 Airway Patency: Patent Respiratory Rate: 14 Temperature: 97.0 F Patient is:: Awake and Stable Stable to PACU at:: 11:00
--- NOTE | 2024-08-29 11:11 | XR_ITS ---
FINAL REPORT CLINICAL HISTORY: post TKA FINDINGS: RIGHT KNEE Four views were obtained. There is no fracture or dislocation. The patient is status post arthroplasty changes. The hardware is unremarkable. IMPRESSION: Status post arthroplasty. Reviewed, Interpreted and Dictated by Issac Morales MD Transcribed by Beverley Silverio Authenticated and [facility]
--- NOTE | 2024-08-29 11:33 | P.OP_ITS ---
Date of procedure: 08/29/24 Pre-op Diagnosis:: End-stage osteoarthritis right knee Post-op Diagnosis:: Same Procedure performed:: Right total knee arthroplasty Surgeon:: Wesley Araujo DO LOSS PREVENTION GUARD:: Syed Oh Anesthesia: spinal Estimated blood loss (mL): 0 Clinical Note:: Implants Medacta size 2+ femur size 3 tibia 11 mm poly insert and a size 1 patella Operative findings:: See dictation Operative note:: Patient identified preoperatively. Right knee marked with yes my initials. Transported operative suite. Given spinal anesthesia. Then placed supine on the operating bed. Right lower extremity prepped and draped in normal sterile fashion. Once prepped and draped final operative timeout performed to identify proper patient procedure and extremity. Everyone involved the case agreed. There is no counter indications to beginning. Did receive preoperative antibiotics. Marking pen was used to miguel planned midline incision of the knee Esmarch was used to exsanguinate the extremity pneumatic tourniquet inflated to 300 mmHg. Knee was flexed skin knife was used to incise through skin down to the capsule. Standard medial parapatellar approach was utilized and patella was everted. Anterior aspects of the medial and lateral meniscus were removed the preoperative planning template was visualized as well as the cutting guides for the femur and the touch points on the 3D model were evaluated. The 3D model was then placed to the back table and the cutting guide was pinned into place distal femoral cut was placed. 4-in-1 cutting block size 2-1/2 was utilized and anterior and posterior cuts were made anterior and posterior chamfer cuts were made Tibial trial 2+ was impacted into place and lug holes were drilled and removed. Attention was brought to the tibia the rest of the medial and lateral meniscus were removed the ACL sacrificed tibia subluxed anteriorly the Medacta premade patient [place] tibia guide was selected and pinned into place. Osteotomy was performed on the tibia based on this cut guide. Small sliver of cut was made medially therefore recut of the tibia was performed. Then the tibial trial was selected and impacted into place in connection with preoperative planning. The cone reamer was utilized followed by the punch then the trial size 10 poly for the joint was selected and placed along with the tibial and femur trials and then upsized to a size 11. 11 gave good fit and fill stable flexion extension Patella was everted and patella guide was used to make osteotomy of 10 mm of the patella this sized to a size 1 size 1 patella trial was then placed knee was taken through flexion extension and found to be very stable. Trials were removed copious irrigation was performed. The cement was mixed once the final implants were opened was cemented in the tibial component and attempted to place the poly implant but it did not properly seat on the lateral side several attempts to see if this were unsuccessful. Therefore the tibia cement was allowed to set up to harden an additional batch of cement was open to recement the femur and then another poly implant was selected and impacted into place without difficulty. Then I cemented in the femur and the patella allow the cement to harden remove the loose excess cement around the prosthesis. Irrigation repeated. Tourniquet deflated hemostasis obtained with electrocautery. Irrigation repeated. Capsule closed with a #1 strata fix suture deep layers with 0 Vicryl subcutaneous with 2-0 Vicryl and surgical clips in the skin for closure sterile dressing placed from toe to thigh patient waken from anesthesia taken recovery in stable condition. Condition: stable Disposition: PACU Complications:: None apparent
[2024-08-29] MEDS: HYDROMORPHONE 2MG/ML SYRINGE 0.5 MG IV ×2 (11:35→11:40)
[2024-08-29] MEDS: MORPHINE 2MG/ML SYRINGE 1 MG IV ×2 (11:41→11:46)
--- NOTE | 2024-08-29 11:54 | PC.NURSE ---
arrived by bed from surgery
[2024-08-29] MEDS: LACTATED RINGERS 1000ML 1,000 ML 75 ML IV ×2 (12:05→20:40)
[2024-08-29] MEDS: OXYCODONE 5MG IMMEDIATE RELEASE TABLET 5 MG PO (12:17)
[2024-08-29 13:47] LABS: Microscopic,Cath URINE MICROSCOPIC (MICROSCOPIC)
[2024-08-29 13:49] LABS: Appearance,Urine/Cath CLEAR (Clear); Bilirubin,Cath Negative (Negative); Blood, Urine/Cath Negative (Negative); Color,Urine/Cath YELLOW (Yellow); Glucose,Urine/Cath (UA) Negative (Negative); Ketones,Urine/Cath Negative (Negative); Leukocyte Esterase,Cath Negative (Negative); Nitrate,Cath Negative (Negative); PH,Urine/Cath 6.0 (5.0-8.5); Protein,Urine/Cath Negative (Negative); Specific Gravity, Urine/Cath 1.010 (1.005-1.030); Urobilinogen,Cath 0.2 EU/dl (0.2)
[2024-08-29 14:10] LABS: Squamous Epithelial Ur./Cath Occasional #/hpf (0-5); WBC,Urine/Cath Occasional #/hpf (0-3)
--- NOTE | 2024-08-29 15:30 | P.PNANES_ITS ---
[facility] Anesthesia Record Part II Anesthesia Record Part II Discharge Time: 11:40 Destination: Medical Surgical Department PACU nurse assessment reviewed?: Yes Patient Condition:: Good Anesthesia Complications:: None Swallowing reflex intact?: Yes Airway Patency: Patent Cyanosis?: No Blood Pressure: 166/96 SaO2: 96 Respiratory Rate: 18 Pulse Rate: 64 Temperature: 98.5 F Mental Status: Alert & Oriented Pain level:: 6 Nausea and/or vomitting:: None Intake, IV Amount: 0 Hydration: Adequate
[2024-08-29] MEDS: ACETAMINOPHEN 500MG TAB 1000 MG PO ×2 (16:02→21:49)
--- NOTE | 2024-08-29 16:37 | PC.NURSE ---
patient is a/o x4 remains on room air tolerating well. polar pack in place. c/o dull, achy, burning pain on her right knee.MD aware. treated pain per APR. patient requested tylenol, MD notified, tylenol and motrin ordered. oakes in place. +2 pedal pulses.VSS. tolerating diet. family at bed side, call light within reach.
[2024-08-29] MEDS: IBUPROFEN 800 MG TABLET PO (18:14)
--- NOTE | 2024-08-29 18:17 | PC.NURSE ---
when i walked into patients room, patient asked if it would be okay if she took her home Flomax. i explained to patient and spouse that meds brought from home would need to be ordered by the MD and pharmacy would need to label them. patient understood and I explained that meds would need to be locked in patient drawer or taken back home. I also asked if the patient had any controlled meds, patient stated that she did not and her and her stated that he will take the medications home when he leaves. i asked patient if she had taken any other meds and she reported that she did not.
[2024-08-29] MEDS: ASPIRIN EC 81MG TABLET 81 MG PO (20:37)
[2024-08-30] VITALS: BP 130/65; PULSE 77; RESP 16; TEMP 36.8; O2SAT 94
[2024-08-30 04:00] VITALS: BP 125/63; PULSE 70; RESP 17; TEMP 36.6; O2SAT 97; BMI 32.4
--- NOTE | 2024-08-30 04:14 | PC.NURSE ---
Pt A&OX4 and has tolerated room air. She has complained of pain once this shift and was medicated per APR. Dressing has remained c/d/i. Garza has remained in place and draining well. No complaints at this time, call light within reach.
--- NOTE | 2024-08-30 05:35 | PC.NURSE ---
Garza catheter pulled at this time.
[2024-08-30 06:46] LABS: Hematocrit 36.0 % (37.0-47.0); Hemoglobin 11.8 g/dL (12.2-16.2); Immature Granulocytes % 0.3 %; Mean Corpuscular HGB Conc 32.8 g/dL (31.8-35.4); Mean Corpuscular Hemoglobin 28.0 pg (27.0-31.2); Mean Corpuscular Volume 85.5 fl (81-99); Nucleated Red Blood Cells % 0 %; Platelet Count 236 K/mm3 (142-424); Red Blood Count 4.21 M/mm3 (4.20-5.40); Red Cell Distribution Width-SD 44.6 fL; White Blood Count 7.1 K/mm3 (4.8-10.8)
[2024-08-30 06:54] LABS: Anion Gap 11.9 mEq/L (5-15); Blood Urea Nitrogen 12 mg/dl (7-17); Calcium 8.3 mg/dl (8.4-10.2); Carbon Dioxide 27 mmol/L (22.0-30.0); Chloride 100 mmol/L (98-107); Creatinine Clearance Estimated 73 mL/min (50-200); Creatinine,Serum 0.90 mg/dl (0.52-1.04); Estimated Glomerular Filt Rate 62 ml/min (>60); GFR (African American) 75 ML/MIN (>60); Glucose 111 mg/dl (74-100); Potassium 3.9 mmoL/L (3.5-5.1); Sodium 135 mmol/L (136-145)
[2024-08-30 08:00] VITALS: BP 145/66; PULSE 82; RESP 16; TEMP 36.9; O2SAT 93
[2024-08-30] MEDS: ASPIRIN EC 81MG TABLET 81 MG PO (08:16)
--- NOTE | 2024-08-30 09:53 | HMH.PTEV ---
Physical Therapy Evaluation Rehab PT IP Evaluation Start: 08/29/24 14:11 Freq: ONCE Status: Active Protocol: Document 08/30/24 09:44 JIGAR (Rec: 08/30/24 09:52 JIGAR [id number]) Subjective/History History History Pt is a 69 y/o female who is s/p R TKA on 08/29/24. Subjective Subjective PLOF: IND with all mobility without use of AD. HOME: Lives with in single-story home with 0 HALLIE. Has a RW and elevated toilet seat. ASSIST: can provide 24/[address] [facility] How much help from another person do you currently need... Turning from your None back to your side while in a flat bed without using bedrails? Moving from lying on None back to sitting on the side of a flat bed without using bedrails? Moving to and from a None bed to a chair ( including a wheelchair)? Standing up from a None chair using your arms? (e.g., wheelchair, bedside chair) Walking in hospital A little room? Climbing 3-5 steps A little with a railing? Mobility Score [address] [facility] Mobility 7 Walk 25 feet or more Mobility Calculator Rehab PT IP Eval Objective Appearance Patient Behavior Appropriate,Cooperative Patient Orientation Person,Situation Difficulty following none instructions Speech Pattern Clear Ambulation Patient Able to Yes Ambulate Ambulation Observation IP General Gait Wide Based Gait Pattern Observation Ambulation Distance 30 (feet) Ambulation Assistive Rolling Walker Device Ambulation Ability Contact Guard/Hand Hold Balance Ability to Arise Able, uses arms to help Sitting Balance Steady, safe Standing Balance Steady, wide stance Dynamic Sitting Good Balance Ability Dynamic Standing Good Balance Ability Transfers Bed Transfer Ability Supervision/Stand by Sit to Stand Bed Supervision/Stand by Transfer Ability Rehab PT IP prob,goals,plan Problems Date of Evaluation: 08/30/24 PT IP Problems Bed Mobility,Transfers,Gait,Balance,Self care,Safety Rehab Potential Rehab Potential Good Plan PT Intervention Plan Bed Mobility,Transfers,Gait,Balance,Self care,Safety, Therapeutic Exercise Other Intervention 1-2 times Plan PT Plan Frequency Daily Duration LOS Discharge Goals Bed Transfer Ability Independent Sit to Stand Chair Independent Transfer Ability Discharge Plan PT Discharge Plan Initial physical therapy evaluation performed. Patient presents below baseline at this time in functional mobility, transfers, gait, and strength. Pt would benefit from skilled PT while at [facility] to prevent further functional decline and maximize safety with mobility. Pt most appropriate to d/c home when deemed medically necessary d/t current level of mobility, home set-up, and family support. PT recommending OP PT services which pt already has scheduled. Eval Complexity Eval Charge Codes 02901 - Moderate Complexity PHYSICIAN CERTIFICATION: I certify the specified therapy services for Idania Escobar are required, authorized, and reviewed every 30 days.
[2024-08-30] MEDS: ACETAMINOPHEN 500MG TAB 1000 MG PO (10:37)
[2024-08-30 12:00] VITALS: BP 136/69; PULSE 69; RESP 16; TEMP 36.6; O2SAT 96
--- NOTE | 2024-08-30 13:16 | SW/DCPLANNER ---
Per PT patient can return to outpatient PT services at time of discharge. Patient is scheduled for outpatient PT tomorrow 08/31. Patient will discharge home today.
--- NOTE | 2024-08-31 10:02 | SW/DCPLANNER ---
Spoke with patient on the phone. Patient stated that she is doing good. Patient stated that she is aware of her upcoming appointment. Patient stated that she was able to get her new medicine picked up. Patient stated that she has no concerns or questions at this time. Liliane Chu
--- NOTE | 2024-10-02 10:33 | EXP.HPDC ---
General Admission date:: 08/29/24 Discharge date: 08/30/24 *Admission Date: 08/29/24 *Chief complaint: End-stage osteoarthritis right knee *History of present illness: 69-year-old female with end-stage osteoarthritis right knee failed extensive conservative treatment and presented for right total knee arthroplasty [facility] Disclaimer: The information contained in this section may have been updated after the patient was seen, as this information can be updated by other users. Medical History Cystitis Hypertension Surgical History History of surgery History of surgery on arm History of facial surgery Family History Other Family history of heart disease Social History Smoking Status: Never smoker alcohol intake: never substance use type: denies use current occupational status: retired Travel in the last 8 weeks?: None household members: spouse housing: house caffeine: No Have you lived/traveled outside US in past 30 days?: No Contact w/someone who lives/traveled outside US past 30 days?: No Exposure to someone with infectious disease in past 14 days?: No Do you have a fever (greater than 100.4 F or 38 C)?: No Have you tested positive for COVID-19?: No Exposed to someone with COVID-19 in past 14 days?: No Do you have a sore throat?: No Do you have a cough?: No Do you have any weakness?: No Do you have any diarrhea?: No Are you experiencing any unusual bleeding?: No Do you have any muscle aches/pain?: No Do you have any abdominal pain?: No Are you experiencing loss of taste or smell?: No Other Medical History Have you received the Flu Vaccine for this season: No Have you received the Pneumonia Vaccine: No Review of Systems Review of Systems Review of systems:: pertinent systems reviewed and negative unless documented below *Cardiovascular Cardiovascular: Reports system reviewed and no additional complaints, except as documented *Respiratory Respiratory: Reports system reviewed and no additional complaints, except as documented *Gastrointestinal Gastrointestinal: Reports system reviewed and no additional complaints, except as documented *Genitourinary Genitourinary: Reports system reviewed and no additional complaints, except as documented *Musculoskeletal Musculoskeletal: Reports as per HPI *Neurologic Neurologic: Reports system reviewed and no additional complaints, except as documented Exam Data for Last 24 hours Vital signs and Labs for Last 24 Hours: Temp Pulse Resp BP Pulse Ox O2 Del Method 97.8 F 69 16 136/69 96 Room Air 08/30/24 12:00 08/30/24 12:00 08/30/24 12:00 08/30/24 12:00 08/30/24 12:00 08/30/24 12:00 *Routine HEENT Exam Head: Present normocephalic Eye: Present PERRL ENT: Present mucous membranes moist *Routine Neck Exam Neck: Present supple *Routine Respiratory Exam Respiratory: Present normal respiratory effort *Routine Cardiovascular Exam Cardiovascular: Present RRR *Routine Abdominal Exam Abdominal: Present soft *Routine Rectal Exam Rectal:: deferred *Routine Genitalia Exam Genitalia:: deferred *Routine Extremities Exam Comments: Right knee: No drainage no evidence of infection [place] in place no evidence of DVT *Routine Skin Exam Skin: Present intact *Routine Neurological Exam Neurological: Present alert Meds Home Medications and Allergies Home Medications ?Medication ?Instructions ?Recorded ?Confirmed ?Type tamsulosin 0.4 mg capsule (Flomax) 0.4 mg PO DAILY 03/18/17 09/20/24 History amlodipine 5 mg tablet 2.5 mg PO DAILY 08/29/24 09/20/24 History hydroxyzine HCl 50 mg tablet 25 mg PO HSP PRN Insomnia 08/29/24 09/20/24 History aspirin 81 mg tablet 81 mg PO BID #60 tabs 08/30/24 09/20/24 Rx hydrocodone 5 mg-acetaminophen 325 1 tab PO Q6H PRN post op pain #30 08/30/24 09/20/24 Rx mg tablet tabs New Prescriptions to Start Prescriptions: aspirin Wesley Araujo hydrocodone-acetaminophen Wesley Araujo Allergies Allergy/AdvReac Type Severity Reaction Status Date / Time nitrofurantoin (From Allergy Rash Verified 09/20/24 10:15 Macrodantin) Hospital Course Hospital Course Hospital Course: Patient underwent uneventful right total knee arthroplasty 08/29/2024 was admitted for observation overnight physical therapy consulted progressed well no complications stable for discharge 08/30/2024 with outpatient therapy arranged. DS: Diagnosis Discharge Diagnosis (1) Tricompartment osteoarthritis of right knee: Status: Acute Code(s): M17.11 - Unilateral primary osteoarthritis, right knee Discharge Plan Disposition Patient Disposition: Home, Self-Care Follow up Plan Follow up with: Wesley Araujo DO [Staff Physician, Orthopedics] - 09/18/24 10:00 am Prescriptions/Medication Reconciliation: New aspirin 81 mg tablet 81 mg PO BID Qty: 60 0RF hydrocodone-acetaminophen 5-325 mg tablet 1 tab PO Q6H PRN (Reason: post op pain) Qty: 30 0RF Continued tamsulosin [Flomax] 0.4 mg capsule,extended release 24hr 0.4 mg PO DAILY hydroxyzine HCl 50 mg tablet 25 mg PO HSP PRN (Reason: Insomnia) amlodipine 5 mg tablet 2.5 mg PO DAILY Problem Reconciliation Problems Reviewed?: Yes Patient Discharge Instructions ACTIVITY: Ambulate as tolerated Additional Instructions: may change dressing tomorrow to island dressing WBAT Followup as schedule with PT Patient Instructions: DI for Knee Replacement, DI for Surgical Site Infection, Catheter-Associated Urinary Tract Infection Print Language: Malaysian Providers Primary Care Provider: Jesus Barnes Admit Provider: Wesley Araujo Attending Provider: Wesley Araujo
== END 2024-08-30 12:42 | disposition home or self-care (01) ==
LOC: 2ND 06:16
PROVIDERS: Admitting Provider Orthopaedic Surgery; PCP Family Medicine; Visit Provider Orthopaedic Surgery
PROC: (CPT 27447; principal; 2024-08-29 07:30)
DX: M17.11 Unilateral primary osteoarthritis, right knee (principal); I10 Essential (primary) hypertension; Z96.651 Presence of right artificial knee joint; Z88.1 Allergy status to other antibiotic agents; Z79.899 Other long term (current) drug therapy
CPT/HCPCS: 27447; 96361 ×2; 96365; 96375; 96376; 36415; 73562; 80048; 81001; 85025; 96374; 97162; C1776; G0378; J0665; J0690; J1171; J2270; J2405; J2704; J3010; J7120

== ENCOUNTER 2024-09-14 09:00 | Outpatient (RCR) | payer MEDICARE, OTHER, SELFPAY ==
--- NOTE | 2024-08-31 14:19 | HMH.PTOPEV ---
PT Outpatient Evaluation Rehab PT Outpatient Evaluation Start: 08/31/24 12:58 Freq: Status: Active Protocol: Document 08/31/24 12:59 IZABELLA (Rec: 08/31/24 14:18 IZABELLA [id number]) E-signed By Robinson Alba, PT Outpatient Therapy Subjective History Subjective History The pt is a 69 yof who presents s/p R TKA performed on 08/29/24. Pt reports that she stayed one night in the hospital and returned home yesterday. The pt presents this date in a manual wheelchair and also with a FWW. Pt reports that she is using the FWW for walking in the home. Pt reports that she occasionally used a quad cane prior to surgery when she was in a lot of pain. Mostly, she did not use anything. Pt reports that she has not done any exercises since she has been home. Pt denies falls. PMH: osteoarthritis, hypertension, denies any previous cardiac conditions New diagnosis of No cancer in past 12 months? Chief Complaint Pain,Stiff,Swelling Symptom Type Ache,Throb,Sharp Symptoms Relieved By Ice,Prescription Meds Symptoms Aggravated Standing,Walking By Prior Functional None Limitations Current Functional Lifting,Standing,Squatting,Walking,Stairs Limitations Symptom Description Constant and Continuous Level of pain today 10 (0-10) Pain scale - at its 10 best (0-10) Pain scale - at its 10 worst (0-10) Hip/Knee Eval Gait Observation General Gait Pattern Antalgic Gait,Decrease Weight Bear (R),Decrease Stride Observation Lngth (L) Assistive Device Assistive Devices Rolling / Wheeled Walker Palpation Tenderness right Knee Palpation Tenderness Finding Knee Palpation TTP 4/4 to global knee Overall Comment MMT Hip Flexion Strength 2 Poor Grade Hip Abduction 2 Poor Strength Grade Hip Adduction 2 Poor Strength Grade Hip Extension 2 Poor Strength Grade Knee Extension 2 Poor Strength Grade Knee Flexion 2 Poor Strength Grade ROM Knee Extension +10 Active Range of Motion (degrees) Knee Extension +6 Passive Range of Motion (degrees) Knee Flexion Active 50 Range of Motion ( degrees) Knee Flexion Passive 75 Range of Motion ( degrees) Lower Extremity Functional Index Activities Today, do you or would you have any difficulty at all with: a.Any of your usual Extreme difficulty or unable to perform activity work, housework or school activities b. Your usual Extreme difficulty or unable to perform activity hobbies, recreational or sporting activities c. Getting into or Extreme difficulty or unable to perform activity out of the bath d. Walking between Extreme difficulty or unable to perform activity rooms e. Putting on your Extreme difficulty or unable to perform activity shoes or socks f. Squatting Extreme difficulty or unable to perform activity g. Lifting an object Extreme difficulty or unable to perform activity , like a bag of groceries from the floor h. Performing light Extreme difficulty or unable to perform activity activities around your home i. Performing heavy Quite a bit of difficulty activities around your home j. Getting into or Quite a bit of difficulty out of a car k. Walking 2 blocks Extreme difficulty or unable to perform activity l. Walking a mile Extreme difficulty or unable to perform activity m. Going up or down Extreme difficulty or unable to perform activity 10 stairs (about 1 flight of stairs) n. Standing for 1 Extreme difficulty or unable to perform activity hour o. Sitting for 1 Extreme difficulty or unable to perform activity hour p. Running on even Extreme difficulty or unable to perform activity ground q. Running on uneven Extreme difficulty or unable to perform activity ground r. Making sharp Extreme difficulty or unable to perform activity turns while running fast s. Hopping Extreme difficulty or unable to perform activity t. Rolling over in Extreme difficulty or unable to perform activity bed LEFI Score Lower Extremity 2 Functional Index Score Outpatient Therapy Assessment Impairments Problems/ Palpation Tenderness,Impaired Range of Motion,Impaired Impairmments Strength,Impaired Gait Pattern,Impaired Walking, Impaired Standing,Impaired Driving,Impaired Lifting, Impaired Household Care,Impaired Stair Climbing, Impaired Squatting,Impaired Balance,Subjective C/O Pain Prognosis Rehab Potential Good Comment w HEP Compliance Clinical Impression Consistent with Yes Diagnosis Consistent with R TKA (08/29/24) Additional details: M17.11 Z96.651 Short Term Goals Number of Weeks 6 Decreased Palpation Yes: 2-3/4 to TTP assessment above Tenderness Increase Range of Yes: +3-100 R knee ROM Motion Increase Strength Yes: 3+/5 to R hip/knee Improve Gait Pattern Yes: Symmetrical Step length and weight bearing with with Assistive AAD. Device Improve Balance Yes: tandem stance for 30s Improve LEFI Score Yes: >20 Decrease Subjective Yes: 5/10 with above assessment C/O Pain Improve Self Care/ Yes Self Management Patient to be Ind w/ Yes HEP Nursing Home Goals Number of Weeks 12 Decreased Palpation Yes: 0-1/4 to TTP assessment above Tenderness Increase Range of Yes: 0-125 Motion Increase Strength Yes: 4-4+/5 to R hip/knee Improve Gait Pattern Yes: Normalized Gait Mechanics without Assistive Device Improve Ability For Yes Household Care Improve Ability to Yes: Flight of stairs Climb Stairs Improve Balance Yes: TS on uneven surface for 30s Improve LEFI Score Yes: >40 Decrease Subjective Yes: 2-3/10 with above assessment C/O Pain Patient to be Ind w/ Yes Advanced HEP Outpatient Therapy Plan of Care Treatment Plan May Include Therapeutic Exercise Yes Including Home Exercise Program Manual Therapy Yes Techniques Neuromuscular Re- Yes education Therapeutic Yes Activities to Return to Previous Functional/Work Level Gait Training Yes ADL/Self Care Yes Education Thermal Modalities Yes Electrical Yes Stimulation Manual Lymphatic Yes Drainage Eval/Re-Eval Yes Frequency Times per week 2-3 Duration Number of Weeks 12 Addendums This patient is a No candidate for social or vocational rehab ? Patient/Guardian Yes verbally acknowledges understanding of treatment program and consents to further treatment? Patient/Guardian Yes verbally acknowledges understanding of diagnosis, prognosis and goals for treatment? Eval Complexity PT Charges 08830 - Moderate Complexity Shoulder/Elbow Eval Shoulder Objective Measurements Elbow Objective Measurements PHYSICIAN CERTIFICATION: I certify the specified therapy services for Idania Escobar are required, authorized, and reviewed every 30 days.
== END 2024-09-14 23:59 | disposition home or self-care (01) ==
LOC: PT 09:00
PROVIDERS: PCP Family Medicine; Visit Provider Orthopaedic Surgery
DX: Z47.89 Encounter for other orthopedic aftercare (principal); Z96.651 Presence of right artificial knee joint
CPT/HCPCS: 97110; 97140; 97162; 97530

== ENCOUNTER 2024-09-18 08:42 | Outpatient (CLI) | payer MEDICARE, OTHER, SELFPAY ==
--- OUTSIDE RECORDS SUMMARY | 2024-01-10 06:00 | XMS_ITS ---
Author Organization [facility] Address [address] [facility] [address] [place], [place] [id number] Care Team Providers Care Travel Registered Nurse Nicu Name Role Phone Jesus Barnes Primary Care Provider Rayna Terrazas Unavailable [phone] Allergies Allergen (clinical drug ingredient) Drug/Non Drug [...] growth Performing Lab: Notes/Report: Test performed by [facility] [address] [place] [address] , [address], [place] [address] Tate Javier MD, Algology Teacher CLIA: [id number] Specimen Source Urine - Void Culture, Urine [...] 01/10/2024 Encounters Encounter Location Date Provider Diagnosis [facility] [address] [place] [id number] 01/10/2024 Rayna Terrazas UTI (lower urinary tract [...] [address], [address], [place], [place], [id number], Progress Notes * JUDITH SMITH:1955 (69 yo F)Acc No.[id number]:01/10/2024 Progress Notes Patient: ALLI GROVE Provider: BIBI Farr :1955 A ge:68 Y S ex:Female Date:01/10/2024 Address:[address] [place] [address], [place], [id number] Pcp:Jesus Barnes Subjective: * Chief Complaints: * [...] Hypertension, Allergic Rhinitis, Osteoarthritis, Knees, Diverticulosis, 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 * Procedure Codes: [address] [place]. [address] CAPILLARY BLOOD DRAW. 25943 CBC WITH AUTO DIFF. 97612 Urinalysis, no micro. * Electronic signature of Luanne Terrazas APRN on 09/18/2024 at 08:51 AM EDT Sign off status: Pending * Provider: BIBI Farr Date: 1 03/11/2023 Generated for Yumiko tejada/Stephy/Terri on: 0 09/18/2024 08:51 AM EDT History and Physical Notes * [...]
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
--- NOTE | 2024-09-18 08:45 | XR_ITS ---
FINAL REPORT CLINICAL HISTORY: right tka post op surgery august 29 COMPARISON: 08/29/2024 FINDINGS: RIGHT KNEE: Postoperative changes are again noted from a total knee arthroplasty. Surgical vtio are again noted in the anterior soft tissues. The hardware is intact. There is mild subcutaneous edema noted, and the subcutaneous emphysema noted on the prior exam is now minimal. IMPRESSION: Postoperative changes from a right total knee arthroplasty, with intact hardware. Reviewed, Interpreted and Dictated by Nino Franco MD Transcribed by Lainey Holt Authenticated and . [facility]
--- OUTSIDE RECORDS SUMMARY | 2024-09-18 08:51 | XMS_ITS | Clinical Summary ---
Author Organization Healthcare Address [address] [place] [address] Care Team Providers Care [employer] Name Role Phone Zoltan Dial MD Primary Care Provider [phone] Family History Medical History Relation Name Comments [...] of Treatment Not on file Care Teams [employer] Relationship Specialty Start Date End Date Zoltan Dial MD [address] [place] [address] [place] [address] PCP - General 06/28/20
--- OUTSIDE RECORDS SUMMARY | 2024-09-18 08:51 | XMS_ITS ---
Author Organization Unknown Problems Date Problem Result OnSetDate Icd10 SnomedCode Severity Cu stom 12/27/2023 00:00:00 Osteopenia of right hip M85.851 06/07/2024 00:00:00 BMI 30.0-30.9,adult Z68.30 [id number]
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
== END 2024-09-18 23:59 | disposition home or self-care (01) ==
LOC: RAD 08:43
PROVIDERS: PCP Family Medicine; Visit Provider Physician Assistant Surgical
DX: Z47.1 Aftercare following joint replacement surgery (principal); Z96.651 Presence of right artificial knee joint
CPT/HCPCS: 73562

== ENCOUNTER 2024-10-10 10:07 | Outpatient (CLI) | payer MEDICARE, OTHER, SELFPAY ==
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
--- OUTSIDE RECORDS SUMMARY | 2024-10-10 10:10 | XMS_ITS | Clinical Summary ---
Author Organization Healthcare Address [address] [place] [address] Care Team Providers Care Toll Collector Name Role Phone Zoltan Dial MD Primary Care Provider [phone] Family History Medical History Relation Name Comments [...] of Treatment Not on file Care Teams Toll Collector Relationship Specialty Start Date End Date Zoltan Dial MD [address] [place] [address] [place] [address] PCP - General 06/28/20
--- NOTE | 2024-10-10 10:11 | XR_ITS ---
FINAL REPORT CLINICAL HISTORY: total knee COMPARISON: 08/29/2024 FINDINGS: RIGHT KNEE 3 views of the right knee were obtained. There is no acute fracture or dislocation. There are changes from right knee arthroplasty. Hardware appears intact. Visualized joint spaces are normally aligned. Soft tissues are unremarkable. IMPRESSION: No acute bony abnormality. Reviewed, Interpreted and Dictated by Anne Aponte MD Transcribed by Kerry Alvarado Authenticated and [facility]
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
== END 2024-10-10 23:59 | disposition home or self-care (01) ==
LOC: RAD 10:09
PROVIDERS: PCP Family Medicine; Visit Provider Orthopaedic Surgery
DX: M17.11 Unilateral primary osteoarthritis, right knee (principal)
CPT/HCPCS: 73562

== ENCOUNTER 2024-10-12 09:00 | Outpatient (RCR) | payer MEDICARE, OTHER, SELFPAY ==
--- NOTE | 2024-10-03 11:23 | HMH.RHREAS ---
Rehab Reassessment Rehab OP Re-assessment Start: 09/19/24 08:59 Freq: Status: Active Protocol: Document 10/03/24 08:54 IZABELLA (Rec: 10/03/24 11:05 IZABELLA [id number]) E-signed By Robinson Alba, PT Lower Extremity Functional Index Activities Today, do you or would you have any difficulty at all with: a.Any of your usual Moderate difficulty work, housework or school activities b. Your usual Quite a bit of difficulty hobbies, recreational or sporting activities c. Getting into or A little bit of difficulty out of the bath d. Walking between A little bit of difficulty rooms e. Putting on your A little bit of difficulty shoes or socks f. Squatting Extreme difficulty or unable to perform activity g. Lifting an object A little bit of difficulty , like a bag of groceries from the floor h. Performing light A little bit of difficulty activities around your home i. Performing heavy Moderate difficulty activities around your home j. Getting into or A little bit of difficulty out of a car k. Walking 2 blocks Quite a bit of difficulty l. Walking a mile Extreme difficulty or unable to perform activity m. Going up or down Extreme difficulty or unable to perform activity 10 stairs (about 1 flight of stairs) n. Standing for 1 Extreme difficulty or unable to perform activity hour o. Sitting for 1 No difficulty hour p. Running on even Extreme difficulty or unable to perform activity ground q. Running on uneven Extreme difficulty or unable to perform activity ground r. Making sharp Extreme difficulty or unable to perform activity turns while running fast s. Hopping Extreme difficulty or unable to perform activity t. Rolling over in Moderate difficulty bed LEFI Score Lower Extremity 30 Functional Index Score Rehab Re-assessment Subjective Subjective Pt reports that she is approximately 60% improved. Pt reports that she does her exercises everyday. 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 Reports that she will walk shorter distances in her home without an AD. Pt reports that her pain today is a 4/10. Pt reports that her biggest difficulty continues to be walking longer distances, stairs and balance. Objective Objective Notes LEFS: 30 (2 on IE) TTP: 2/4 to proximal gastroc and to supra-patella ROM: +1-105 Strength: - Knee Extension: 3+/5 - Knee Flexion: 3+/5 - hip Flexion: 4/5 - hip abd: 4/5 Gait: ambulates with quad cane, slightly decreased WB on RLE and Assessment Progress Assessment Progressing as Expected Assessment Notes Pt presents 5 week s/p R TKA, and has attended 10 PT visits, presently. Pt is progressing well with motion and her strength at this time. Pt has met her short term goals for both knee extension and knee flexion. Pt has transitioned from walking with a walker to a quad cane. Pt also has demonstrated improvements in her gait and with the strength of her R LE grossly. Pt is progressing well and would continue to benefit from skilled PT to promote a return to her PLOF and to address her remaining impairments. PT Patient Goals PT Short Term 1. 2-3 TTP with above assessment MET Patient Goals 2. +3-100 ROM MET 3. 3+/5 to r hip/knee MET 4. Symmetrical step length with AAD NOT MET 5. Tandem Stance for 30s NOT MET 6. LEFS >20 MET 7. 5/10 pain with above assessment MET 8. Improve Self Care MET 9. Ind w HEP MET PT Retail Stocker Patient 1. 0-1/4 to TTP assessment above NOT MET Goals 2. 0-125 R knee ROM NOT MET 3. 4-4+/5 to R hip/knee NOT MET 4. Normal Gait NOT MET 5. Improve household care NOT MET 6. Flight of stairs NOT MET 7. TS on uneven surface for 30s NOT MET 8. LEFS >40 NOT MET 9. 2-3/10 pain with above assessment NOT MET 10. Ind with advanced HEP. NOT MET Plan Plan Pt would continue to benefit from skilled PT utilizing the following activities. Plan to add more standing exercises as appropriate. Frequency of Therapy 2/week Duration of Therapy 4 weeks Therapeutic Exercise Yes Including Home Exercise Program Manual Therapy Yes Techniques Neuromuscular Re- Yes education Therapeutic Yes Activities to Return to Previous Functional/Work Level Gait Training Yes ADL/Self Care Yes Education Thermal Modalities Yes Electrical Yes Stimulation Iontophoresis Yes Manual Lymphatic Yes Drainage Eval/Re-Eval Yes Time and Billing Re-Eval Time 9 Re-Eval Billing 0 Units Charge for PT No reassessment? PHYSICIAN CERTIFICATION: I certify the specified therapy services for Idania Lazaro Escobar are required, authorized, and reviewed every 30 days.
== END 2024-10-12 23:59 | disposition home or self-care (01) ==
LOC: PT 09:00
PROVIDERS: PCP Family Medicine; Visit Provider Orthopaedic Surgery
DX: Z47.89 Encounter for other orthopedic aftercare (principal); Z96.651 Presence of right artificial knee joint
CPT/HCPCS: 97110; 97140; 97530

== ENCOUNTER 2024-11-14 09:00 | Outpatient (RCR) | payer MEDICARE, OTHER, SELFPAY ==
--- NOTE | 2024-10-31 10:01 | HMH.RHREAS ---
Rehab Reassessment Rehab OP Re-assessment Start: 10/18/24 08:53 Freq: Status: Active Protocol: Document 10/31/24 09:13 JAMESCAREN (Rec: 10/31/24 10:01 IZABELLA [id number]) E-signed By Robinson lAba, PT Lower Extremity Functional Index Activities Today, do you or would you have any difficulty at all with: a.Any of your usual A little bit of difficulty work, housework or school activities b. Your usual A little bit of difficulty hobbies, recreational or sporting activities c. Getting into or No difficulty out of the bath d. Walking between No difficulty rooms e. Putting on your No difficulty shoes or socks f. Squatting Quite a bit of difficulty g. Lifting an object A little bit of difficulty , like a bag of groceries from the floor h. Performing light No difficulty activities around your home i. Performing heavy A little bit of difficulty activities around your home j. Getting into or No difficulty out of a car k. Walking 2 blocks Moderate difficulty l. Walking a mile Extreme difficulty or unable to perform activity m. Going up or down A little bit of difficulty 10 stairs (about 1 flight of stairs) n. Standing for 1 A little bit of difficulty hour o. Sitting for 1 No difficulty hour p. Running on even Moderate difficulty ground q. Running on uneven Quite a bit of difficulty ground r. Making sharp Quite a bit of difficulty turns while running fast s. Hopping Moderate difficulty t. Rolling over in A little bit of difficulty bed LEFI Score Lower Extremity 54 Functional Index Score Rehab Re-assessment Subjective Subjective Pt reports that she is 75-80% improved since her knee replacement. Pt reports that all of her normal activities have gotten significantly easier. Pt reports that she is no longer using an AD and has no difficulties with walking. Pt reports that her pain is a 3/10 during today's assessment. Pt reports that her surgeon told her to continue therapy through the end of October and then she should be good to finish up. Objective Objective Notes LEFS: 54 (30 on last RA) (2 on IE) TTP: 1/4 to proximal gastroc and to supra-patella ROM: 0-117 Strength: - Knee Extension: 4+/5 - Knee Flexion: 4+/5 - hip Flexion: 4+/5 - hip abd: 4+/5 Gait: ambulates without AD. Slightly decreased WB on RLE. No apparent balance deficits. Assessment Progress Assessment Progressing as Expected Assessment Notes Pt presents 9 week s/p R TKA, presently. Pt is progressing well with motion and her strength at this time. Pt has met her short term and intermediate manager goals for knee extension and is progressing well towards her intermediate manager goal for knee flexion. Pt has transitioned from walking with a walker to a quad cane to walking without an assistive device. Pt also has demonstrated improvements in her gait and with the strength of her R LE grossly. Pt is progressing well and would continue to benefit from skilled PT to promote a return to her PLOF and to address her remaining impairments. PT Patient Goals PT Short Term 1. 2-3 TTP with above assessment MET Patient Goals 2. +3-100 ROM MET 3. 3+/5 to r hip/knee MET 4. Symmetrical step length with AAD MET 5. Tandem Stance for 30s MET 6. LEFS >20 MET 7. 5/10 pain with above assessment MET 8. Improve Self Care MET 9. Ind w HEP MET PT Toe Stripper Patient 1. 0-1/4 to TTP assessment above MET Goals 2. 0-125 R knee ROM PROGRESSING 3. 4-4+/5 to R hip/knee MET 4. Normal Gait NOT MET 5. Improve household care MET 6. Flight of stairs MET 7. TS on uneven surface for 30s NOT MET 8. LEFS >40 MET 9. 2-3/10 pain with above assessment MET 10. Ind with advanced HEP. NOT MET Plan Plan Continue as per initial POC, utilizing the following activities and frequency. Frequency of Therapy 2/week Duration of Therapy 4 weeks Therapeutic Exercise Yes Including Home Exercise Program Manual Therapy Yes Techniques Neuromuscular Re- Yes education Therapeutic Yes Activities to Return to Previous Functional/Work Level Gait Training Yes ADL/Self Care Yes Education Thermal Modalities Yes Electrical Yes Stimulation Manual Lymphatic Yes Drainage Eval/Re-Eval Yes Time and Billing Re-Eval Time 10 Re-Eval Billing 0 Units Charge for PT No reassessment? PHYSICIAN CERTIFICATION: I certify the specified therapy services for Idania Escobar are required, authorized, and reviewed every 30 days.
== END 2024-11-14 23:59 | disposition home or self-care (01) ==
LOC: PT 09:00
PROVIDERS: PCP Family Medicine; Visit Provider Orthopaedic Surgery
DX: Z47.89 Encounter for other orthopedic aftercare (principal); Z96.651 Presence of right artificial knee joint
CPT/HCPCS: 97110; 97530

== ENCOUNTER 2024-12-27 07:43 | Outpatient (CLI) | payer MEDICARE, OTHER, SELFPAY ==
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
--- NOTE | 2024-12-27 07:45 | MM_ITS ---
PROCEDURE INFORMATION: Exam: MG Bilateral Screening 3D Mammography Exam date and time: 12/27/2024 7:50 AM Age: 69 years old Clinical indication: Screening examination TECHNIQUE: Imaging protocol: Bilateral Screening tomosynthesis and 2D mammography including computer-aided detection (CAD) when performed. COMPARISON: 1. MG MM DIG SCREENING MAMM BI W/CAD 12/26/2021 10:05 AM 2. MG MM DIG SCREENING MAMM BI W/CAD 12/24/2020 8:02 AM FINDINGS: MAMMOGRAPHY: Breast composition: There are scattered areas of fibroglandular density. Mass: No suspicious masses. Architectural distortion: None. Calcifications: No suspicious calcifications. Asymmetric density: None. Skin thickening: None. Axillary adenopathy: None. IMPRESSION: No mammographic evidence of malignancy. Annual screening is recommended unless otherwise clinically indicated. ASSESSMENT: BI-RADS Category 1: Negative.
--- OUTSIDE RECORDS SUMMARY | 2024-12-27 07:45 | XMS_ITS | Clinical Summary ---
Author Organization Healthcare Address [address] [place] [address] Care Team Providers Care Tool Maker Apprentice Name Role Phone Zoltan Dial MD Primary Care Provider [phone] Family History Medical History Relation Name Comments [...] of Treatment Not on file Care Teams Tool Maker Apprentice Relationship Specialty Start Date End Date Zoltan Dial MD [address] [place] [address] [place] [address] PCP - General 06/28/20
--- OUTSIDE RECORDS SUMMARY | 2024-12-27 07:46 | XMS_ITS ---
Author Organization Unknown ENCOUNTERS Encounter Performer Location Date Diagnosis Diagnosis Status Outpatient [place] [id number] [facility] [address] [place] [id number] ERIC *Note: Encounters from your own facility or health system may be excluded. Allergies, Adverse Reactions, Alerts Allergen Type Severity Identification Date nitrofurantoin drug allergy 1 [id number] Medications Name Date Quantity Days Supplied GPI Number
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
== END 2024-12-27 23:59 | disposition home or self-care (01) ==
LOC: RAD 07:43
PROVIDERS: PCP Family Medicine; Visit Provider Family Medicine
DX: Z12.31 Encounter for screening mammogram for malignant neoplasm of breast (principal); R92.323 Mammographic fibroglandular density, bilateral breasts
CPT/HCPCS: 77063; 77067

== ENCOUNTER 2025-02-13 09:07 | Outpatient (CLI) | payer MEDICARE, OTHER, SELFPAY ==
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
--- NOTE | 2025-02-13 09:10 | XR_ITS ---
FINAL REPORT CLINICAL HISTORY: left knee pain COMPARISON: 03/14/2024 FINDINGS: AP, lateral and oblique views of the left knee were obtained. There is no acute osseous abnormality of the left knee. There is tricompartmental degenerative joint disease. The soft tissues are normal. There is no joint effusion. IMPRESSION: No acute osseous abnormality of the left knee. Degenerative changes, similar to the prior study. Reviewed, Interpreted and Dictated by Anne Aponte MD Transcribed by Gloria Mauricio Authenticated and [facility]
--- NOTE | 2025-02-13 09:10 | XR_ITS ---
FINAL REPORT CLINICAL HISTORY: right knee post op COMPARISON: 10/10/2024 FINDINGS: AP, lateral and oblique views of the right knee were obtained. There are changes from knee arthroplasty. The hardware is intact and unchanged. There is no acute osseous abnormality of the right knee. The soft tissues are normal. IMPRESSION: No acute osseous abnormality of the right knee. Intact postoperative changes. Reviewed, Interpreted and Dictated by Anne Aponte MD Transcribed by Gloria Mauricio Authenticated and [facility]
--- OUTSIDE RECORDS SUMMARY | 2025-02-13 09:10 | XMS_ITS | Clinical Summary ---
Author Organization Healthcare Address [address] [place] [address] Care Team Providers Care Electronic Scale Assembler And Tester Name Role Phone Zoltan Dial MD Primary Care Provider [phone] Family History Medical History Relation Name Comments [...] of Treatment Not on file Care Teams Electronic Scale Assembler And Tester Relationship Specialty Start Date End Date Zoltan Dial MD [address] [place] [address] [place] [address] PCP - General 06/28/20
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
== END 2025-02-13 23:59 | disposition home or self-care (01) ==
LOC: RAD 09:08
PROVIDERS: PCP Family Medicine; Visit Provider Orthopaedic Surgery
DX: Z96.651 Presence of right artificial knee joint; M17.12 Unilateral primary osteoarthritis, left knee
CPT/HCPCS: 73562